=== PATIENT | male | born 1990 | race Caucasian/White ===

== ENCOUNTER 2017-07-10 18:16 | Emergency (ER) | payer SELFPAY ==
[~2017-07-10] VITALS: Ht 167.6 cm; Wt 62.6 kg
[~2017-07-10 18:16] MED LIST: HYDR-2758 PO; IBUP600T16 PO
[2017-07-10 18:20] VITALS: BP 161/93
--- NOTE | 2017-07-10 18:21 | ED.ADGEN ---
Past History Past Medical History: No Pertinent History, Depression, Other Past Surgical History: No Surgical History Alcohol Use: None Drug Use: None Adult General Chief Complaint Chief Complaint ".. I having thoughts of bad depression... I feel like everyone is lying to me... I guess I had some hallucinations... that I was talking to my girl friend.. but she is still in long term for another 3 weeks...".. " I got out of long term after being in for 10 months.. about a month ago... and I been using since I got out.. mainly pills but some Meth.. I smoke it.. I did smoke two bowls last night.. may I am all confused and paranoid because the meth.. My family was concerned because I have attempted suicide twice before... I am depressed but not really thinking about suicide...." HPI HPI Patient is a 27 year old male who presents with the above hx and complaints of confusion, depression, hallucinations, and paranoid thoughts.. Patient does have a history of depression, but denies any suicidal thoughts or plans. Patient main drug of choice is pills oxycodone and hydrocodone. Pt. denies immunosuppression. No recent travel or specific ill contacts. Review of Systems Review of Systems Constitutional: Denies fever or chills [] Eyes: Denies change in visual acuity, redness, or eye pain [] HENT: Denies nasal congestion or sore throat [] Respiratory: Denies cough or shortness of breath [] Cardiovascular: No additional information not addressed in HPI [] GI: Denies abdominal pain, nausea, vomiting, bloody stools or diarrhea [] : Denies dysuria or hematuria [] Musculoskeletal: Denies back pain or joint pain [] Integument: Denies rash or skin lesions [] Neurologic: Denies headache, focal weakness or sensory changes []Complaints of depression, hallucinations, and confusion. Endocrine: Denies polyuria or polydipsia [] All other systems were reviewed and found to be within normal limits, except as documented in this note. Family History Family History Father had killed himself by methamphetamine overdose Current Medications Current Medications Current Medications Medications (Trade) Dose Ordered Sig/Mark Start Time Stop Time Status Last Admin Dose Admin Folic Acid (FOLIC ACID SYRINGE for ER) 5 mg STK-MED ONCE 07/10/17 18:59 07/10/17 19:00 DC Lactated Ringer's 1,000 ml @ 1,000 mls/hr 1X ONCE 07/10/17 19:45 07/10/17 20:44 DC 07/10/17 20:03 1,000 MLS/HR Multivitamins/ Minerals 10 ml/ Folic Acid 1 mg/ Thiamine HCl 100 mg/Lactated Ringer's 1,011.1 ml @ 1,000 mls/ hr 1X ONCE 07/10/17 18:45 07/10/17 19:45 DC 07/10/17 19:02 1,000 MLS/HR Potassium Chloride (KCl Oral Soln) 40 meq 1X ONCE 07/10/17 19:45 07/10/17 19:46 DC 07/10/17 20:03 40 MEQ Thiamine HCl 200 mg STK-MED ONCE 07/10/17 18:59 07/10/17 19:00 DC Allergies Allergies Allergies Coded Allergies Type Severity Reaction Last Updated Verified No Known Drug Allergies 05/28/14 No Physical Exam Physical Exam Constitutional: moderately acute emotional distress, non-toxic appearance. [] HENT: Normocephalic, atraumatic, bilateral external ears normal, oropharynx moist, no oral exudates, nose normal. [Very poor dentition. Eyes: PERRLA, EOMI, conjunctiva normal, no discharge. [] Neck: Normal range of motion, no tenderness, supple, no stridor. [] Cardiovascular:Heart rate regular rhythm, no murmur [] Lungs & Thorax: Bilateral breath sounds equal at apex with scattered wheezes on auscultation [] Abdomen: Bowel sounds normal, soft, no tenderness, no masses, no pulsatile masses. [] Skin: Warm, dry, no erythema, no rash. [] Back: No tenderness, no CVA tenderness. [] Extremities: No tenderness, no cyanosis, no clubbing, ROM intact, no edema. [] Neurologic: Alert and oriented X 3, normal motor function, normal sensory function, no focal deficits noted. [] Psychologic: Affect anxious, judgement limited insight to his drug abuse and depression., mood depressed. Current Patient Data Vital Signs Vital Signs Date Time Temp Pulse Resp B/P (MAP) Pulse Ox O2 Delivery O2 Flow Rate FiO2 07/10/17 18:20 98.3 92 16 96 Room Air Lab Results Laboratory Tests Test 07/10/17 18:30 07/10/17 18:37 White Blood Count 10.1 x10^3/uL (4.0-11.0) Red Blood Count 5.43 x10^6/uL (4.30-5.70) Hemoglobin 16.5 g/dL (13.0-17.5) Hematocrit 47.2 % (39.0-53.0) Mean Corpuscular Volume 87 fL (79-100) Mean Corpuscular Hemoglobin 30 pg (25-35) Mean Corpuscular Hemoglobin Concent 35 g/dL (31-37) Red Cell Distribution Width 13.1 % (11.5-14.5) Platelet Count 424 x10^3/uL (140-400) H Neutrophils (%) (Auto) 55 % (31-73) Lymphocytes (%) (Auto) 37 % (24-48) Monocytes (%) (Auto) 5 % (0-9) Eosinophils (%) (Auto) 2 % (0-3) Basophils (%) (Auto) 1 % (0-3) Neutrophils # (Auto) 5.6 x10^3uL (1.8-7.7) Lymphocytes # (Auto) 3.7 x10^3/uL (1.0-4.8) Monocytes # (Auto) 0.5 x10^3/uL (0.0-1.1) Eosinophils # (Auto) 0.2 x10^3/uL (0.0-0.7) Basophils # (Auto) 0.1 x10^3/uL (0.0-0.2) Prothrombin Time 10.7 SEC (9.4-11.4) Prothrombin Time INR 1.0 (0.9-1.1) PTT 25 SEC (23-33) Sodium Level 139 mmol/L (136-145) Potassium Level 2.8 mmol/L (3.5-5.1) *L Chloride Level 100 mmol/L (98-107) Carbon Dioxide Level 31 mmol/L (21-32) Anion Gap 8 (6-14) Blood Urea Nitrogen 4 mg/dL (8-26) L Creatinine 1.1 mg/dL (0.7-1.3) Estimated GFR (Cockcroft-Gault) 80.3 Glucose Level 157 mg/dL (70-99) H Calcium Level 9.0 mg/dL (8.5-10.1) Magnesium Level 2.2 mg/dL (1.8-2.4) Creatine Kinase 210 U/L (39-308) Creatine Kinase MB (Mass) 1.5 ng/mL (0.0-3.6) Creatine Kinase MB Relative Index 0.7 % (0-4) Troponin I Quantitative < 0.017 ng/mL (0-0.055) Salicylates Level 1.6 mg/dL (2.8-20.0) L Salicylate Last Dose Date Unk Salicylate Last Dose Time Unk Ethyl Alcohol Level < 10 mg/dL (0-10) Urine Collection Type Unknown Urine Color Straw Urine Clarity Clear Urine pH 7.0 Urine Specific [place] <=1.005 Urine Protein Neg (NEG-TRACE) Urine Glucose (UA) Neg mg/dL (NEG) Urine Ketones (Stick) Neg mg/dL (NEG) Urine Blood Neg (NEG) Urine Nitrite Neg (NEG) Urine Bilirubin Neg (NEG) Urine Urobilinogen Dipstick 0.2 mg/dL (0.2 mg/dL) Urine Leukocyte Esterase Neg (NEG) Urine RBC 0 /HPF (0-2) Urine WBC Occ /HPF (0-4) Urine Squamous Epithelial Cells Occ /LPF Urine Bacteria 0 /HPF (0-FEW) Urine Opiates Screen Neg (NEG) Urine Methadone Screen Neg (NEG) Urine Barbiturates Neg (NEG) Urine Phencyclidine Screen Neg (NEG) Urine Amphetamine/Methamphetamine Pos (NEG) Urine Benzodiazepines Screen Neg (NEG) Urine Cocaine Screen Neg (NEG) Urine Cannabinoids Screen Neg (NEG) Urine Ethyl Alcohol Neg (NEG) EKG EKG My interpretation EKG shows a sinus rhythm at 87 bpm. Some nonspecific inferior changes. No findings acute STEMI with contralateral changes.[] Radiology/Procedures Radiology/Procedures My interpretation of chest x-ray shows no acute cardio pulmonary changes.[] Course & Med Decision Making Course & Med Decision Making Pertinent Labs and Imaging studies reviewed. (See chart for details) See Tele. Psych. Evgordo. Juan Carlos.. Pt. to follow up with Counseling center. Push fruit juices. Follow up with primary. Return if any concerns. [] Final Impression Final Impression 1 Hallucinations 2. Depression[] 3. Polysubstance Abuse 4. Hypokalemia Dragon Disclaimer Dragon Disclaimer This electronic medical record was generated, in whole or in part, using a voice recognition dictation system. OLIVE SAXENA MD July 10, 2017 18:21
[2017-07-10] MEDS ORDERED: MVI, ADULT NO.4 WITH VIT K 10 ML, FOLIC ACID SYRINGE for ER 1 MG, THIAMINE 100 MG in IV... IV ONE ×4 (18:45)
[2017-07-10 18:48] LABS: BASO # 0.1 x10^3/uL (0.0-0.2); BASO % 1 % (0-3); EOS # 0.2 x10^3/uL (0.0-0.7); EOS % 2 % (0-3); HEMATOCRIT 47.2 % (39.0-53.0); HEMOGLOBIN 16.5 g/dL (13.0-17.5); LYMPH # 3.7 x10^3/uL (1.0-4.8); LYMPH % 37 % (24-48); MEAN CORPUSCULAR HEMOGLOBIN 30 pg (25-35); MEAN CORPUSCULAR HGB CONC 35 g/dL (31-37); MEAN CORPUSCULAR VOLUME 87 fL (79-100); MONO # 0.5 x10^3/uL (0.0-1.1); MONO % 5 % (0-9); NEUT # 5.6 x10^3uL (1.8-7.7); NEUT % 55 % (31-73); PLATELET COUNT 424 x10^3/uL (140-400); RED BLOOD COUNT 5.43 x10^6/uL (4.30-5.70); RED CELL DISTRIBUTION WIDTH 13.1 % (11.5-14.5); WHITE BLOOD COUNT 10.1 x10^3/uL (4.0-11.0)
--- NOTE | 2017-07-10 18:51 | EKG ---
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
[2017-07-10] MEDS ORDERED: FOLIC ACID 5 MG/ML SYRINGE for ER IV ONE (18:59)
[2017-07-10] MEDS ORDERED: THIAMINE 200 MG/2 ML VIAL. IV ONE (18:59)
[2017-07-10 19:14] LABS: ETHANOL < 10 mg/dL (0-10); SALIC 1.6 mg/dL (2.8-20.0)
[2017-07-10 19:19] LABS: AMPHETAMINE/METHAMPHETAMINE POS (NEG); BARBITURATES NEG (NEG); BENZODIAZEPINES NEG (NEG); CANNABINOIDS NEG (NEG); COCAINE NEG (NEG); METHADONE NEG (NEG); OPIATES NEG (NEG); PHENCYCLIDINE NEG (NEG)
[2017-07-10 19:22] LABS: BACTERIA,URINE 0 /HPF (0-FEW); BILIRUBIN,URINE NEG (NEG); CLARITY,URINE CLEAR; COLOR,URINE STRAW; GLUCOSE,URINE NEG (NEG); NITRITE,URINE NEG (NEG); RBC,URINE 0 /HPF (0-2); SQUAMOUS EPITHELIAL CELL,UR OCC /LPF; UROBILINOGEN,URINE 0.2 mg/dL (0.2 mg/dL); WBC,URINE OCC /HPF (0-4)
[2017-07-10 19:27] LABS: CREATININE 1.1 mg/dL (0.7-1.3); GFR 80.3; MAGNESIUM 2.2 mg/dL (1.8-2.4)
[2017-07-10 19:31] LABS: POTASSIUM 2.8 mmol/L (3.5-5.1)
--- NOTE | 2017-07-10 19:35 | RAD ---
EXAM: Chest, single view. HISTORY: Methamphetamine overdose. COMPARISON: None. FINDINGS: A frontal view of the chest is obtained. There is no infiltrate, pleural effusion or pneumothorax. The heart is normal in size. IMPRESSION: No acute pulmonary finding. Electronically signed by: Glenna Somers MD (07/10/2017 7:32 PM) [facility]
[2017-07-10] MEDS ORDERED: POTASSIUM CHLORIDE 20 MEQ/15 ML ORAL LIQUID. PO ONE (19:45)
[2017-07-10] MEDS ORDERED: IV RINGERS SOLUTION,LACTATED 1,000 ML IV ONE (19:45)
== END 2017-07-11 00:18 | disposition home or self-care (01) ==
LOC: ER 18:16
DX: F32.9 Major depressive disorder, single episode, unspecified (principal); E87.6 Hypokalemia; F19.10 Other psychoactive substance abuse, uncomplicated; F15.10 Other stimulant abuse, uncomplicated
CPT/HCPCS: 36415; 71045; 80048; 80307; 81001; 82553; 83735; 84484; 85025; 85610; 85730; 93005; 96361; 96365; 99285; G0480; J7120; G0479

== ENCOUNTER 2017-10-03 15:53 | Inpatient (IN) | payer SELFPAY ==
[~2017-10-03] VITALS: Ht 175.3 cm; Wt 63.3 kg
[2017-10-03] MEDS ORDERED: IV NORMAL SALINE 1,000ML 1,000 ML IV SCH (16:17)
[2017-10-03 16:36] LABS: BASO % 0 % (0-3); EOS # 0.1 x10^3/uL (0.0-0.7); EOS % 1 % (0-3); HEMATOCRIT 40.4 % (39.0-53.0); HEMOGLOBIN 13.8 g/dL (13.0-17.5); LYMPH # 2.2 x10^3/uL (1.0-4.8); LYMPH % 25 % (24-48); MEAN CORPUSCULAR HEMOGLOBIN 29 pg (25-35); MEAN CORPUSCULAR HGB CONC 34 g/dL (31-37); MEAN CORPUSCULAR VOLUME 85 fL (79-100); MONO # 0.4 x10^3/uL (0.0-1.1); MONO % 5 % (0-9); NEUT % 69 % (31-73); PLATELET COUNT 466 x10^3/uL (140-400); RED BLOOD COUNT 4.74 x10^6/uL (4.30-5.70); RED CELL DISTRIBUTION WIDTH 13.6 % (11.5-14.5); WHITE BLOOD COUNT 8.8 x10^3/uL (4.0-11.0)
--- NOTE | 2017-10-03 16:50 | EKG ---
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
[2017-10-03 16:51] LABS: ACETAMIN < 2.0 mcg/mL (10-30); ETHANOL < 10 mg/dL (0-10); SALIC 2.4 mg/dL (2.8-20.0)
[2017-10-03 16:54] LABS: ALBUMIN 3.9 g/dL (3.4-5.0); CALCIUM 8.9 mg/dL (8.5-10.1); CREATININE 1.1 mg/dL (0.7-1.3); DIRECT BILIRUBIN 0.2 mg/dL (0.0-0.2); GFR 80.3; MAGNESIUM 1.9 mg/dL (1.8-2.4); POTASSIUM 3.4 mmol/L (3.5-5.1); TOTAL BILIRUBIN 0.7 mg/dL (0.2-1.0); TOTAL PROTEIN 7.2 g/dL (6.4-8.2)
--- NOTE | 2017-10-03 16:58 | PHYS DOC ---
Past History Past Medical History: Depression, Other Past Surgical History: No Surgical History Alcohol Use: Rarely Drug Use: Methamphetamine Adult General Chief Complaint Chief Complaint: SUICDAL IDEATION HPI HPI Patient is a [27 year old [male] who presents with complaining of Risperdal overdose. Patient states he had an argument with his fiance and took about 20 pills of Risperdal 1 mg around 1400 (about 2 hours prior to arrival to ER) to kill himself. Patient denies any symptoms at this time. Patient had previous drug overdose and mental hospitalization. Patient states he is much methamphetamine vision and had some today. Patient denies using other drugs and alcohol. Risperdal was given from [facility] on August 11 with a bottle of 30 of them but patient states he didn't take his medication on a regular basis had about 20 leftover. Patient denies homicidal ideation and hallucination. Review of Systems Review of Systems Constitutional: Denies fever or chills [] Eyes: Denies change in visual acuity, redness, or eye pain [] HENT: Denies nasal congestion or sore throat [] Respiratory: Denies cough or shortness of breath [] Cardiovascular: No additional information not addressed in HPI [] GI: Denies abdominal pain, nausea, vomiting, bloody stools or diarrhea [] : Denies dysuria or hematuria [] Musculoskeletal: Denies back pain or joint pain [] Integument: Denies rash or skin lesions [] Neurologic: Denies headache, focal weakness or sensory changes [] Endocrine: Denies polyuria or polydipsia [] All other systems were reviewed and found to be within normal limits, except as documented in this note. Current Medications Current Medications Current Medications Medications (Trade) Dose Ordered Sig/Mark Start Time Stop Time Status Last Admin Dose Admin Sodium Chloride 1,000 ml @ 1,000 mls/hr Q1H 10/03/17 16:17 10/03/17 17:16 10/03/17 16:30 1,000 MLS/HR Allergies Allergies Allergies Coded Allergies Type Severity Reaction Last Updated Verified No Known Drug Allergies 05/28/14 No Physical Exam Physical Exam Constitutional: Well nourished, mild distress, non-toxic appearance, somnolent. [] HENT: Normocephalic, atraumatic, good gag reflex, oropharynx moist, no oral exudates, nose normal. [] Eyes: PERRLA, EOMI, conjunctiva normal, no discharge. [] Neck: Normal range of motion, no tenderness, supple, no stridor. [] Cardiovascular: Tachycardia, no murmur [] Lungs & Thorax: Bilateral breath sounds clear to auscultation [] Abdomen: Bowel sounds normal, soft, no tenderness, no masses, no pulsatile masses. [] Skin: Warm, dry, no erythema, no rash. [] Back: No tenderness, no CVA tenderness. [] Extremities: No tenderness, no cyanosis, no clubbing, ROM intact, no edema. [] Neurologic: Alert and oriented X 3 but somnolent, normal motor function, normal sensory function, no focal deficits noted. [] Psychologic: Affect depressed, judgement normal, denies suicidal ideation at this time Current Patient Data Lab Results Laboratory Tests Test 10/03/17 16:15 White Blood Count 8.8 x10^3/uL (4.0-11.0) Red Blood Count 4.74 x10^6/uL (4.30-5.70) Hemoglobin 13.8 g/dL (13.0-17.5) Hematocrit 40.4 % (39.0-53.0) Mean Corpuscular Volume 85 fL (79-100) Mean Corpuscular Hemoglobin 29 pg (25-35) Mean Corpuscular Hemoglobin Concent 34 g/dL (31-37) Red Cell Distribution Width 13.6 % (11.5-14.5) Platelet Count 466 x10^3/uL (140-400) H Neutrophils (%) (Auto) 69 % (31-73) Lymphocytes (%) (Auto) 25 % (24-48) Monocytes (%) (Auto) 5 % (0-9) Eosinophils (%) (Auto) 1 % (0-3) Basophils (%) (Auto) 0 % (0-3) Neutrophils # (Auto) 6.0 x10^3uL (1.8-7.7) Lymphocytes # (Auto) 2.2 x10^3/uL (1.0-4.8) Monocytes # (Auto) 0.4 x10^3/uL (0.0-1.1) Eosinophils # (Auto) 0.1 x10^3/uL (0.0-0.7) Basophils # (Auto) 0.0 x10^3/uL (0.0-0.2) Salicylates Level 2.4 mg/dL (2.8-20.0) L Salicylate Last Dose Date Unknown Salicylate Last Dose Time Unknown Acetaminophen Level < 2.0 mcg/mL (10-30) L Acetaminophen Last Dose Date Unknown Acetaminophen Last Dose Time Unknown Ethyl Alcohol Level < 10 mg/dL (0-10) EKG EKG EKG interpreted by me EKG at 1639 showed sinus tachycardia at rate of 102, no acute ST and T wave abnormality, QRS 90 ms and QTC 461 ms[] Radiology/Procedures Radiology/Procedures [] Course & Med Decision Making Course & Med Decision Making Pertinent Labs and Imaging studies reviewed. (See chart for details) Evaluation of patient in ER showed 27-year-old male patient with overdose of Risperdal. Patient was somnolent with mild tachycardia with a stable blood pressure. Patient treated with IV fluid. Poison control was contacted and did recommended if he has QTC more than 500 ms start 2 gr of magnesium IV and if QRS interval is more than 100 ms give 2 MEQ Sodium Bicarbonate/Kg. he suggested to repeat EKG every 2 hours for 3 times and admit patient for observation because of the half life of 18 hours for Risperdal. EKG did not show any prolonged QTC or QRS interval and patient treated with IV fluid only. Dr. Feliz informed at 1647 and agreed to admit patient to ICU. Patient and his family informed about test result and plan of admission. Dragon Disclaimer Dragon Disclaimer This electronic medical record was generated, in whole or in part, using a voice recognition dictation system. Departure Departure: Impression: Primary Impression: Intentional drug overdose Additional Impression: Methamphetamine abuse Disposition: 01 HOME, SELF-CARE Admitting Physician: Rajani Feliz (accepted admission at 1645) Condition: GUARDED Referrals: PCP,NO (PCP) Critical Care Time Critical care time was [60] minutes exclusive of procedures. Problem Qualifiers YOLIE HENRY MD Oct 03, 2017 16:58
[2017-10-03] MEDS: IV NORMAL SALINE 1,000ML 1,000 ML IV SCH ×2 (18:01→23:38)
[2017-10-03 18:09] LABS: BACTERIA,URINE 0 /HPF (0-FEW); BILIRUBIN,URINE NEG (NEG); CLARITY,URINE CLEAR; COLOR,URINE STRAW; GLUCOSE,URINE NEG (NEG); NITRITE,URINE NEG (NEG); RBC,URINE 0 /HPF (0-2); UROBILINOGEN,URINE 0.2 mg/dL (0.2 mg/dL); WBC,URINE RARE /HPF (0-4)
[2017-10-03 18:10] LABS: SQUAMOUS EPITHELIAL CELL,UR OCC /LPF
[2017-10-03 18:31] LABS: BARBITURATES NEG (NEG); BENZODIAZEPINES NEG (NEG); CANNABINOIDS NEG (NEG); COCAINE NEG (NEG); METHADONE NEG (NEG); OPIATES POS (NEG); PHENCYCLIDINE NEG (NEG)
--- NOTE | 2017-10-03 18:33 | RAD ---
Three-view right hand and wrist radiographs 10/03/2017 CLINICAL HISTORY: Hit right hand on brick wall with right wrist and hand pain and swelling. PA, lateral and oblique portable digital radiographs of the right hand and wrist were obtained. No fracture or dislocation of the right hand or wrist is seen. No radiopaque foreign body is noted. IMPRESSION: No fracture or dislocation of the right hand or wrist is seen. Electronically signed by: Arben Davis MD (10/03/2017 6:29 PM) [facility]
--- NOTE | 2017-10-03 18:37 | EKG ---
[address] [address] Test Date: 2017-10-03 Test Time: 18:35:28 Pat Name: FUAD MONTAGUE Department: Room: Gender: M Manager Export: : 1990 Requested By: YOLIE HENRY Order Number: [id number] Reading MD: Measurements Intervals [place] Rate: 105 P: 62 PA: 160 QRS: 89 QRSD: 88 T: 73 QT: 340 QTc: 453 Interpretive Statements SINUS TACHYCARDIA NO SPECIFIC ECG ABNORMALITIES RI6.01 Unconfirmed report Compared to ECG 07/10/2017 18:47:35 Sinus rhythm no longer present
[2017-10-03 18:39] LABS: AMPHETAMINE/METHAMPHETAMINE POS (NEG)
--- NOTE | 2017-10-03 19:29 | RAD ---
Three-view left hand radiographs 10/03/2017 CLINICAL HISTORY: Patient struck left hand on brick wall with swelling. PA, lateral and oblique digital radiographs of the left hand were obtained. No fracture or dislocation of the left hand is seen. No radiopaque foreign body is noted. IMPRESSION: No fracture or dislocation of the left hand is seen. Electronically signed by: Arben Davis MD (10/03/2017 7:26 PM) [facility]
--- NOTE | 2017-10-03 20:14 | EKG ---
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
[2017-10-03 22:07] VITALS: BP 113/60
--- NOTE | 2017-10-03 23:27 | EKG ---
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
[2017-10-03 23:44] VITALS: BP 116/79
[2017-10-04] VITALS (12 sets, daily range): BP systolic 85–167; BP diastolic 42–92
[2017-10-04] MEDS: IV NORMAL SALINE 1,000ML 1,000 ML IV SCH (07:17)
[2017-10-04] MEDS ORDERED: POTASSIUM CHLORIDE 20 MEQ TABLET.ER. PO ONE (08:45)
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
== END 2017-10-04 14:41 | disposition home or self-care (01) | DRG 918 ==
LOC: ER 15:53 → ICU 16:56
PROVIDERS: ADMIT Internal Medicine; ATTEND Internal Medicine
DX: T43.592A Poisoning by other antipsychotics and neuroleptics, intentional self-harm, initial encounter (principal); F15.10 Other stimulant abuse, uncomplicated; F32.9 Major depressive disorder, single episode, unspecified; Z79.899 Other long term (current) drug therapy; Z91.5 Personal history of self-harm; Y92.89 Other specified places as the place of occurrence of the external cause
CPT/HCPCS: 36415; 73110; 73130; 80048; 80076; 80307; 81001; 83735; 85025; 85610; 87641; 93005; 96360; G0480; G6039; 82003; 99291-25; G0479; J7030